=== PATIENT | female | born 1990 | race African-American/Black ===

== ENCOUNTER 2021-05-24 11:45 | Emergency (ER) | payer BC, OTHER ==
[~2021-05-24] VITALS: Ht 167.6 cm; Wt 63.5 kg
[~2021-05-24 11:45] MED LIST: DARVOCET-N 1001 EACH PO; NOHOMEMEDICATIONS; ULTRAM 50MG TAB50 MG PO
[2021-05-24 12:05] VITALS: BP 100/62
[2021-05-24] MEDS ORDERED: ONDANSETRON HCL4 M2 PO (16:31)
[2021-05-24 16:35] LABS: ABSOLUTE NEUTROPHILS 2.5 thou/uL (1.4-8.2); BASOPHILS 0.2 % (0.0-2.0); HEMATOCRIT 39.7 % (37.0-47.0); HEMOGLOBIN 13.4 gm/dL (12.0-15.0); LYMPHOCYTES 24.5 % (24.0-44.0); MCH 33.7 pg (26.0-34.0); MCHC 33.8 g/dL (28.0-37.0); MCV 99.9 fL (80.0-100.0); MONOCYTES 8.9 % (1.0-8.0); PLATELET COUNT 185 thou/uL (150-400); POLYS 66.4 % (36.0-66.0); RBC 3.98 mil/uL (4.20-5.00); RDW 13.2 % (10.5-14.5); WBC 3.8 thou/uL (4.0-11.0)
== END 2021-05-24 17:29 | disposition home or self-care (01) ==
LOC: ER 11:45
PROVIDERS: Nurse Practitioner
DX: O00.90 Unspecified ectopic pregnancy without intrauterine pregnancy (principal); Z3A.01 Less than 8 weeks gestation of pregnancy; F17.210 Nicotine dependence, cigarettes, uncomplicated

== ENCOUNTER 2021-06-13 01:25 | Emergency (ER) | payer BC, OTHER ==
[~2021-06-13] VITALS: Ht 167.6 cm; Wt 64.4 kg
[~2021-06-13 01:25] MED LIST changes: +ONDANSETRON HCL4 M2 PO
[2021-06-13 02:08] LABS: ABSOLUTE NEUTROPHILS 9.2 thou/uL (1.4-8.2); BASOPHILS 0.3 % (0.0-2.0); EOSINOPHILS 0.1 % (0.0-3.0); HEMATOCRIT 33.1 % (37.0-47.0); LYMPHOCYTES 10.2 % (24.0-44.0); MCH 33.9 pg (26.0-34.0); MCHC 33.1 g/dL (28.0-37.0); MCV 102.4 fL (80.0-100.0); MONOCYTES 6.3 % (1.0-8.0); PLATELET COUNT 277 thou/uL (150-400); POLYS 83.1 % (36.0-66.0); RBC 3.24 mil/uL (4.20-5.00); RDW 13.4 % (10.5-14.5); WBC 11.1 thou/uL (4.0-11.0)
[2021-06-13 02:13] LABS: CALCIUM 9.2 mg/dL (8.5-10.1); CREATININE 0.7 mg/dL (0.6-1.0)
[2021-06-13 02:20] LABS: ALBUMIN 3.9 g/dL (3.4-5.0); TOTAL BILIRUBIN 0.3 mg/dL (0.2-1.0); TOTAL PROTEIN 7.3 g/dL (6.4-8.2)
[2021-06-13 02:21] LABS: POTASSIUM 4.3 mmol/L (3.5-5.1)
[2021-06-13 03:55] VITALS: BP 106/55; BP 109/61; BP 116/63; BP 87/44
[2021-06-13 05:09] VITALS: BP 107/62
[2021-06-13 05:25] VITALS: BP 108/72; BP 110/72
== END 2021-06-13 05:12 | disposition short-term general hospital (02) ==
LOC: ER 01:25
PROVIDERS: Emergency Medicine
DX: O00.101 Right tubal pregnancy without intrauterine pregnancy (principal); Z20.822 Contact with and (suspected) exposure to COVID-19; F17.210 Nicotine dependence, cigarettes, uncomplicated; Z3A.01 Less than 8 weeks gestation of pregnancy; Z98.890 Other specified postprocedural states; Z79.899 Other long term (current) drug therapy